=== PATIENT | female | born 1955 | race Caucasian/White ===

== ENCOUNTER 2018-09-12 14:21 | Outpatient (CLI) | payer BC | END 2018-09-12 14:22 | disposition home or self-care (01) | LOC: BICMAMMO 14:21 | PROVIDERS: ATTEND Internal Medicine | DX: Z12.31 Encounter for screening mammogram for malignant neoplasm of breast (principal) | CPT/HCPCS: 77063; 77067 ==

== ENCOUNTER 2019-09-13 08:42 | Outpatient (CLI) | payer BC ==
[2019-09-13 09:29] LABS: Estimated GFR-MDRD - POC Greater than 90
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
--- NOTE | 2019-09-13 11:37 | RAD ---
XR Chest Pa Lat STANDARD HISTORY: Nicotine dependence. COMPARISON: None FINDINGS: The heart size is normal. The lungs are well expanded without focal areas of consolidation, pneumothorax or pleural effusions. IMPRESSION: No radiographic evidence of acute cardiopulmonary process.
--- NOTE | 2019-09-13 11:57 | MRI ---
MRI NECK SOFT TISSUES WITH AND WITHOUT CONTRAST: HISTORY: Dysphagia. Right neck soreness. The patient feels something is stuck in the back of her throat when s he swallows x3 weeks. The patient did have a mouth abscess. COMPARISON: None. TECHNIQUE: A soft tissue neck MRI is performed with and without intravenous gadolinium administration. Multisequ ential, multiplanar imaging is performed. FINDINGS: The visualized aerodigestive tract is patent. No mucosal abnormality. Limited evaluation of the anter ior oral cavity due to metallic susceptibility artifact. Midline fatty raphe of the tongue is preserved. Epiglottis has a normal caliber. Pre-epiglottic fat is preserved. No prevertebral soft tis della swelling. The supraglottic, glottic and subglottic larynx are unremarkable. Symmetric signal intensity of the paraspinal muscles. No evidence of lymphadenopathy by size criteria. Symmetric signa l intensity of the submandibular and parotid glands. Thyroid gland is unremarkable. Upper mediastinum and lung apices are unremarkable. Post contrast images do not demonstrate any abnormal en hancement in the soft tissues of the neck. Redemonstration of bilateral maxillary sinus and ethmoidal mucosal thickening. Partial opacification of the left sphenoid sinus. IMPRESSION: Unremarkable pre and post contrast MRI neck soft tissues. Transcribed Date/Time: 09/13/2019 12:07 PM
--- NOTE | 2019-09-13 12:51 | MMO ---
Bilateral MAMMO Bilat Screen [facility]. CLINICAL HISTORY: Patient is 64 years old and is seen for screening. The patient has the following family history of breast cancer: mother, at age 78, and gi cancer. The patient has no personal history of cancer. VIEWS: The views performed were: bilateral craniocaudal with tomosynthesis; bilateral mediolateral oblique with tomosynthesis; and bilateral exaggerated craniocaudal. FILMS COMPARED: The present examination has been compared to prior imaging studies performed at [facility] on 07/12/2014, 10/07/2015, 10/08/2016 and 09/12/2018. This study has been interpreted with the assistance of computer-aided detection. MAMMOGRAM FINDINGS: The breasts are heterogeneously dense, which could obscure a lesion on mammography. There are stable benign appearing calcifications seen in both breasts. There are no suspicious masses, calcifications or areas of architectural distortion. There are no suspicious masses, suspicious calcifications, or new areas of architectural distortion. IMPRESSION: THERE IS NO MAMMOGRAPHIC EVIDENCE OF MALIGNANCY. A ROUTINE FOLLOW-UP MAMMOGRAM IN 1 YEAR IS RECOMMENDED. THE RESULTS OF THIS EXAM WERE SENT TO THE PATIENT. ACR BI-RADS Category 2 - Benign finding MAMMOGRAPHY NOTE: 1. A negative mammogram report should not delay a biopsy if a dominant of clinically suspicious mass is present. 2. Approximately 10% to 15% of breast cancers are not detected by mammography. 3. Adenosis and dense breasts may obscure an underlying neoplasm. Reported by: JORGE A HERNANDEZ MD Electonically Signed: [id number]
--- NOTE | 2019-09-13 13:54 | BD ---
BONE DENSITOMETRY USING DEXA: Date: 09/13/19 HISTORY: Postmenopausal screening for osteoporosis. Disorder of bone density and structure, unspecified. FINDINGS: Lumbar Spine: BMD (g/cm2) L1 0.918 T-Score: -0.7 Z-Score: 0.7 L2 0.991 T-Score: -0.3 Z-Score: 1.2 L3 0.982 T-Score: -0.9 Z-Score: 0.7 L4 1.099 T-Score: 0.3 Z-Score: 2.0 L1-L4 0.997 T-Score: -0.5 Z-Score: 1.1 Femoral Neck: 0.627 T-Score: -2.0 Z-Score: -0.6 Total Femur: 0.820 T-Score: -1.0 Z-Score: 0.1 The 10 year fracture risk for a major osteoporotic fracture is 10% and for a hip fracture is 1.3%. IMPRESSION: Osteopenia. POS: OFF
== END 2019-09-13 08:43 | disposition home or self-care (01) ==
LOC: BICMRI 08:42
PROVIDERS: ATTEND Internal Medicine
DX: Z12.31 Encounter for screening mammogram for malignant neoplasm of breast (principal); M85.89 Other specified disorders of bone density and structure, multiple sites; S05.90XA Unspecified injury of unspecified eye and orbit, initial encounter; F17.200 Nicotine dependence, unspecified, uncomplicated; J01.00 Acute maxillary sinusitis, unspecified; R51 Headache; R13.10 Dysphagia, unspecified; Z80.3 Family history of malignant neoplasm of breast
CPT/HCPCS: 70543; 70553; 71046; 77063; 77067; 77080; 82565